=== PATIENT | female | born 1960 | race American Indian/Alaskan Native ===

== ENCOUNTER 2018-05-03 10:57 | Emergency (ER) | payer BC ==
[2018-05-03 12:49] VITALS: BP 132/69
--- NOTE | 2018-05-03 13:28 | Emergency Department Report ---
ED Extremity Problem HPI - General Chief complaint: Extremity Problem,Nontraumatic Stated complaint: SPIDER BITE Time Seen by Provider: 05/03/18 13:22 Source: patient Mode of arrival: Ambulatory Limitations: No Limitations - History of Present Illness Initial comments: Juan is a 57-year-old female who [place] did [place] her shoes off briefly and believes something may have stung her on the foot. Patient states there initially was itching but now has pain throbbing that is 7 out of 10 in severity on the entire right foot and the fourth toe. Patient denies any trauma. Patient also states is no nausea vomiting diarrhea or fever at this time. - Related Data Previous Rx's Medication Instructions Recorded Last Taken Type Clindamycin [Clindamycin CAP] 300 mg PO Q8H 7 Days cap 05/03/18 Unknown Rx HYDROcodone/APAP 5-325 [[place] 1 each PO Q4HR PRN #12 tablet 05/03/18 Unknown Rx 5/325] Ibuprofen [Motrin] 800 mg PO Q8HR PRN #20 tablet 05/03/18 Unknown Rx Allergies Allergy/AdvReac Type Severity Reaction Status Date / Time No Known Allergies Allergy Verified 05/03/18 12:44 ED Review of Systems ROS: Stated complaint: SPIDER BITE Other details as noted in HPI Comment: All other systems reviewed and negative ED Past Medical Hx - Past Medical History Previous Medical History?: No - Surgical History Past Surgical History?: Yes Additional Surgical History: tubal ligation - Social History Smoking Status: Never Smoker Substance Use Type: None - Medications Home Medications: Home Medications Medication Instructions Recorded Confirmed Last Taken Type Clindamycin [Clindamycin CAP] 300 mg PO Q8H 7 Days cap 05/03/18 Unknown Rx HYDROcodone/APAP 5-325 [[place] 1 each PO Q4HR PRN #12 tablet 05/03/18 Unknown Rx 5/325] Ibuprofen [Motrin] 800 mg PO Q8HR PRN #20 tablet 05/03/18 Unknown Rx ED Physical Exam - General Limitations: No Limitations General appearance: alert, in no apparent distress - Head Head exam: Present: atraumatic, normocephalic - Eye Eye exam: Present: normal appearance - ENT ENT exam: Present: mucous membranes moist - Neck Neck exam: Present: normal inspection - Respiratory Respiratory exam: Present: normal lung sounds bilaterally. Absent: respiratory distress, wheezes, rales, rhonchi - Cardiovascular Cardiovascular Exam: Present: regular rate, normal rhythm. Absent: systolic murmur, diastolic murmur, rubs, gallop - GI/Abdominal GI/Abdominal exam: Present: soft, normal bowel sounds. Absent: distended, tenderness, guarding - Extremities Exam Extremities exam: Present: normal inspection - Back Exam Back exam: Present: normal inspection - Neurological Exam Neurological exam: Present: alert, oriented X3 - Psychiatric Psychiatric exam: Present: normal affect, normal mood - Skin Skin exam: Present: warm, dry, intact, normal color, rash (patient has right dorsal erythema induration with warmth as well as some redness and swelling to the right fourth toe.) ED Course Vital Signs 05/03/18 12:44 Temperature 98.5 F Pulse Rate 54 L Respiratory 16 Rate Blood Pressure 132/69 O2 Sat by Pulse 100 Oximetry ED Medical Decision Making - Medical Decision Making Patient likely has a insect sting to the right fourth toe is now spread of cellulitis to the right dorsum of the foot. Patient is afebrile nontoxic appearing. Patient will be started on antibiotics and be discharged home. Critical care attestation.: If time is entered above; I have spent that time in minutes in the direct care of this critically ill patient, excluding procedure time. ED Disposition Clinical Impression: Cellulitis of foot Disposition: DC-01 TO HOME OR SELFCARE Is pt being admited?: No Does the pt Need Aspirin: No Condition: Stable Instructions: Cellulitis (ED) Referrals: PRIMARY CARE, [Primary Care Provider] - 3-5 Days Time of Disposition: 13:27
== END 2018-05-03 13:34 | disposition home or self-care (01) ==
LOC: ED 10:57
DX: L03.115 Cellulitis of right lower limb (principal); Z98.51 Tubal ligation status
CPT/HCPCS: 99282

== ENCOUNTER 2022-02-16 18:15 | Emergency (ER) | payer SELFPAY ==
--- NOTE | 2022-02-17 00:26 | Emergency Department Report ---
ED General Adult HPI - General Chief complaint: Wound/Laceration Stated complaint: RT FOOT AND TOE SWOLLEN/SPIDER BITE ON LT SIDE Time Seen by Provider: 02/16/22 23:55 Source: patient Mode of arrival: Ambulatory Limitations: No Limitations - History of Present Illness Initial comments: 7-year-old Syrian female with no reported past medical history presents emerged from complaining of having some pruritus and rash to her right foot from the area of the toes between her toes which resemble athlete's foot. After she itched the area she noticed to begin to get more red over the last 2 to 3 days reports redness and swelling to the area with pain presents emergency department tonight to have the area evaluated she thinks maybe it may be becoming infected and requests treatment. No fevers, chills, sweats no numbness or tingling but she has noted some swelling but without calf pain. -: Gradual Radiation: non-radiation Severity scale (0 -10): 7 Quality: burning Associated Symptoms: denies: confusion, chest pain, cough, malaise, syncope, weakness - Related Data Previous Rx's Medication Instructions Recorded Last Taken Type Clindamycin [Clindamycin CAP] 300 mg PO Q8H 7 Days cap 05/03/18 Unknown Rx HYDROcodone/APAP 5-325 [[place] 1 each PO Q4HR PRN #12 tablet 05/03/18 Unknown Rx 5/325] Ibuprofen [Motrin] 800 mg PO Q8HR PRN #20 tablet 05/03/18 Unknown Rx Chlorhexidine Gluconate [Hibiclens] 10 ml TP BID #240 liquid 02/17/22 Unknown Rx Ciclopirox 0.77% (Nf) [Loprox 1 applic TP BID #1 tube 02/17/22 Unknown Rx 0.77% (Nf)] Sulfamethoxazole/Trimethoprim 1 each PO BID #20 tablet 02/17/22 Unknown Rx [Bactrim Ds] cephALEXin [Keflex] 500 mg PO Q6HR #40 capsule 02/17/22 Unknown Rx Allergies Allergy/AdvReac Type Severity Reaction Status Date / Time No Known Allergies Allergy Verified 05/03/18 12:44 ED Review of Systems ROS: Stated complaint: RT FOOT AND TOE SWOLLEN/SPIDER BITE ON LT SIDE Other details as noted in HPI Comment: All other systems reviewed and negative ED Past Medical Hx - Surgical History Additional Surgical History: tubal ligation - Social History Smoking Status: Never Smoker Substance Use Type: None - Medications Home Medications: Home Medications Medication Instructions Recorded Confirmed Last Taken Type Clindamycin [Clindamycin CAP] 300 mg PO Q8H 7 Days cap 05/03/18 Unknown Rx HYDROcodone/APAP 5-325 [[place] 1 each PO Q4HR PRN #12 tablet 05/03/18 Unknown Rx 5/325] Ibuprofen [Motrin] 800 mg PO Q8HR PRN #20 tablet 05/03/18 Unknown Rx Chlorhexidine Gluconate [Hibiclens] 10 ml TP BID #240 liquid 02/17/22 Unknown Rx Ciclopirox 0.77% (Nf) [Loprox 1 applic TP BID #1 tube 02/17/22 Unknown Rx 0.77% (Nf)] Sulfamethoxazole/Trimethoprim 1 each PO BID #20 tablet 02/17/22 Unknown Rx [Bactrim Ds] cephALEXin [Keflex] 500 mg PO Q6HR #40 capsule 02/17/22 Unknown Rx ED Physical Exam - General Limitations: No Limitations General appearance: alert, in no apparent distress - Head Head exam: Present: atraumatic, normocephalic - Eye Eye exam: Present: normal appearance - ENT ENT exam: Present: mucous membranes moist - Neck Neck exam: Present: normal inspection - Respiratory Respiratory exam: Present: normal lung sounds bilaterally. Absent: respiratory distress - Cardiovascular Cardiovascular Exam: Present: regular rate, normal rhythm. Absent: systolic murmur, diastolic murmur, rubs, gallop - GI/Abdominal GI/Abdominal exam: Present: soft, normal bowel sounds - Extremities Exam Extremities exam: Present: normal inspection, tenderness, joint swelling - Expanded Lower Extremity Exam Right Foot/Toe exam: Present: tenderness Neuro vascular tendon exam: Present: no vascular compromise 1 - Cellulitis to this region 2 - Small blister to the top of distal about 1 cm - Back Exam Back exam: Present: normal inspection - Neurological Exam Neurological exam: Present: alert, oriented X3 - Psychiatric Psychiatric exam: Present: normal affect, normal mood - Skin Skin exam: Present: warm, dry, intact, normal color. Absent: rash ED Course Vital Signs 02/16/22 18:45 Temperature 98.9 F Pulse Rate 58 L Respiratory 14 Rate Blood Pressure 136/73 [Right] O2 Sat by Pulse 100 Oximetry Critical care attestation.: If time is entered above; I have spent that time in minutes in the direct care of this critically ill patient, excluding procedure time. ED Disposition Clinical Impression: Cellulitis of foot, right, Tinea pedis, right Disposition: HOME / SELF CARE / HOMELESS Is pt being admited?: No Does the pt Need Aspirin: No Condition: Stable Instructions: Cellulitis, Adult Prescriptions: Sulfamethoxazole/Trimethoprim [Bactrim Ds] 1 each PO BID #20 tablet Chlorhexidine Gluconate [Hibiclens] 10 ml TP BID #240 liquid cephALEXin [Keflex] 500 mg PO Q6HR #40 capsule Ciclopirox 0.77% (Nf) [Loprox 0.77% (Nf)] 1 applic TP BID #1 tube Referrals[facility] [Provider Group] - 3-5 Days
[2022-02-17 01:12] VITALS: BP 146/89
== END 2022-02-17 01:14 | disposition home or self-care (01) ==
LOC: ED 18:15
DX: L03.115 Cellulitis of right lower limb (principal); B35.3 Tinea pedis; Z98.890 Other specified postprocedural states
CPT/HCPCS: 99282